=== PATIENT | female | born 2000 ===

== ENCOUNTER 2020-04-07 20:58 | Emergency (ER) | payer OTHER ==
[2020-04-07 21:57] LABS: Urine Blood 2+ (NEG); Urine Glucose NEGATIVE (NEG); Urine Protein NEGATIVE (NEG)
[2020-04-07 22:07] LABS: Urine Bacteria 20-50 /HPF (<20); Urine Culture Reflex Order REFLEXED; Urine Yeast PRESENT (NONE SEEN); Urine Yeast with Hyphae PRESENT
[2020-04-07 22:38] LABS: Basophils % 0.8 % (0-1.3); Hematocrit 41.8 % (36.0-45.0); Lymphocytes % 18.8 % (15.3-44.8); MPV 9.5 fL (7.6-11.3); RBC Red Blood Cell Count 4.65 M/uL (3.86-4.86)
[2020-04-07 22:48] LABS: ALT/SGPT 18 U/L (12-78); AST/SGOT 16 U/L (15-37); Albumin 3.6 g/dL (3.4-5.0); Alkaline Phosphatase 77 U/L (45-117); BUN Blood Urea Nitrogen 11 mg/dL (7-18); Bicarbonate 25 mmol/L (21-32); Bilirubin Direct < 0.1 mg/dL (0-0.2); Bilirubin Total 0.1 mg/dL (0.2-1.0); Glucose Level 112 mg/dL (74-106); Lipase 101 U/L (73-393); Potassium 3.3 mmol/L (3.5-5.1); Protein, Total 7.2 g/dL (6.4-8.2); Sodium Level 140 mmol/L (136-145)
[2020-04-08] MEDS ORDERED: CEFTRIAXONE/SWI 1gm 1 GM/10 ML SYR ONE (00:18)
[2020-04-08] MEDS ORDERED: FLUCONAZOLE 100 MG TAB ONE (00:18)
[2020-04-08 01:31] VITALS: BP 117/65; TEMP 97.3; O2SAT 100
--- NOTE | 2020-04-08 09:20 | RAD REPORT ---
EXAM DESCRIPTION: US - Transvaginal Study Probe - 04/08/2020 8:43 am CLINICAL HISTORY: lower abdomen pain COMPARISON: No comparisons TECHNIQUE: Endovaginal sonography was performed. FINDINGS: Normal size uterus for patient age. No myometrial mass. A thin endometrial stripe is prese nt 2 mm or less. No endometrial abnormality. Both ovaries are identified and normal size. Doppler evaluation shows normal ovarian stroma blood zeferino w pattern. No dominant solid or cystic ovarian or adnexal finding. No blood or fluid in the cul de sac. IMPRESSION: Unremarkable endovaginal ultrasound.
--- NOTE | 2020-04-08 19:31 | EDPHYS ---
Physician Documentation [facility] Name: Pamela Mckeon Age: 19 yrs Sex: Female : 2000 Arrival Date: 04/07/2020 Time: 21:01 Bed 15 Private MD: ED Physician Daniel Jaramillo HPI: 04/07 21:50 This 19 yrs old Female presents to ER via Ambulatory with complaints of Vaginal cp Bleeding. 21:50 The patient presents with vaginal bleeding that is vaginal discharge, that is brown cp discharge. Onset: The symptoms/episode began/occurred this morning. 21:50 Associated signs and symptoms: Pertinent positives: dysuria, lower abdominal pain, cp Pertinent negatives: fever. Severity of symptoms: in the emergency department the symptoms have improved, mildly. The patient is sexually active, reportedly has a single partner, does not use protection during intercourse. 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 - Social history:: Smoking status: Reported history of juuling and/or vaping. ROS: 21:55 Constitutional: Negative for body aches, chills, fever, poor PO intake. cp 21:55 Positive for urinary symptoms, vaginal bleeding, vaginal discharge, Negative for cp flank pain. 21:55 Eyes: Negative for injury, pain, redness, and discharge. 21:55 ENT: Negative for ear pain, sore throat. 21:55 Cardiovascular: Negative for chest pain. 21:55 Respiratory: Negative for cough. 21:55 Abdomen/GI: Positive for abdominal pain, Negative for vomiting, diarrhea, constipation. 21:55 Skin: Negative for rash. 21:55 All other systems are negative. Exam: 22:00 Constitutional: The patient appears in no acute distress, alert, awake, non-toxic, well cp developed, well nourished. 22:00 Head/Face: Normocephalic, atraumatic. cp 22:00 Eyes: Periorbital structures: appear normal, Conjunctiva: normal, no exudate, no injection, Sclera: no appreciated abnormality, Lids and lashes: appear normal, bilaterally. 22:00 ENT: External ear(s): are unremarkable, Nose: is normal, Mouth: Lips: moist, Oral mucosa: moist, Posterior pharynx: Airway: no evidence of obstruction, patent. 22:00 Chest/axilla: Inspection: normal, Palpation: is normal, no crepitus, no tenderness. 22:00 Cardiovascular: Rate: normal, Rhythm: regular. 22:00 Respiratory: the patient does not display signs of respiratory distress, Respirations: normal, no use of accessory muscles, no retractions, labored breathing, is not present. 22:00 Abdomen/GI: Inspection: abdomen appears normal, Bowel sounds: active, all quadrants, Palpation: soft, in all quadrants, mild abdominal tenderness, in the suprapubic area, right lower quadrant and left lower quadrant, rebound tenderness, is not appreciated, voluntary guarding, is not appreciated, involuntary guarding, is not appreciated. 22:00 Back: CVA tenderness, is absent. 23:33 : CVA tenderness, is absent, Pelvic Exam: Speculum exam: scant bleeding, no cp cervicitis, os that is closed, bimanual exam reveals cervical motion tenderness, os that is closed, no uterine tenderness, no adnexal tenderness on right, no adnexal tenderness on left, no adnexal mass on right, no adnexal mass on left, discharge, blood tinged, the nurse was present for the exam, Sexual behavior: the patient is sexually active, and reports a single partner, method of control is control pills. 23:33 Skin: cellulitis, is not appreciated, no rash present. Vital Signs: 21:11 BP 117 / 65; Pulse 95; Resp 18 S; Temp 97.3(TE); Pulse Ox 100% on R/A; Weight 90.72 kg ca1 (R); Height 5 ft. 3 in. (160.02 cm) (R); Pain 10/10; 21:11 Body Mass Index 35.43 (90.72 kg, 160.02 cm) ca1 MDM: 21:47 Patient medically screened. cp 23:55 Data reviewed: vital signs, nurses notes, lab test result(s), radiologic studies, cp ultrasound, and as a result, I will discharge patient. 23:55 Differential diagnosis: appendicitis, brandon infection, ectopic , ovarian cp cyst, pelvic inflammatory disease, urinary tract infection, vaginosis. Counseling: I had a detailed discussion with the patient and/or guardian regarding: the historical points, exam findings, and any diagnostic results supporting the discharge/admit diagnosis, lab results, radiology results, the need for outpatient follow up, an OB/Gyne specialist, to return to the emergency department if symptoms worsen or persist or if there are any questions or concerns that arise at home. Response to treatment: the patient's symptoms have mildly improved after treatment, and as a result, I will discharge patient. ED course: VSS. Will treat for pelvic infection with oral antibiotics and discharge to home for continued monitoring. 04/07 21:43 Order name: Urine Microscopic Only; Complete Time: 23:23 04/07 23:23 Interpretation: Normal except: UWBC 20-50; URBC 5-10; UBACT 20-50; YEAST PRESENT. 04/07 21:50 Order name: Urine Dipstick--Ancillary (enter results); Complete Time: 23:23 nm 04/07 21:50 Order name: Urine --Ancillary (enter results); Complete Time: 23:23 nm 04/07 21:53 Order name: Basic Metabolic Panel; Complete Time: 23:23 04/07 23:23 Interpretation: Normal except: K 3.3; CL 109; GLUC 112; GFR 77. 04/07 21:53 Order name: CBC with Diff; Complete Time: 23:23 04/07 23:23 Interpretation: Normal except: WBC 16.1; NEUT A 11.6. 04/07 21:53 Order name: Hepatic Function; Complete Time: 23:23 04/07 21:43 Order name: Urine Dipstick-Ancillary (obtain specimen); Complete Time: 21:49 04/07 21:52 Order name: US Transvaginal Study (Probe) 04/07 21:53 Order name: Lipase; Complete Time: 23:23 04/07 21:53 Order name: GC (GONORR/CHLAMYDIA) Probe 04/07 21:53 Order name: Wet Prep 04/07 22:09 Order name: Urine Culture EDKY 04/07 21:43 Order name: Urine Test (obtain specimen); Complete Time: 21:49 04/07 21:52 Order name: Pelvic Exam Setup 04/07 21:53 Order name: IV Saline Lock; Complete Time: 23:56 04/07 21:53 Order name: Labs collected and sent; Complete Time: 23:56 Administered Medications: 04/08 00:02 Drug: Rocephin - (cefTRIAXone) 1 grams Route: IVPB; Infused Over: 10 mins; Site: right ls4 antecubital; 00:12 Follow up: Response: No adverse reaction; IV Status: Completed infusion; IV Intake: [id number] 00:02 Drug: DiFLUcan 200 mg Route: PO; ls4 00:20 Follow up: Response: No adverse reaction; Marked relief of symptoms ls4 Disposition: 02:19 Co-signature as Attending Physician, Daniel Jaramillo MD. pkl Disposition: 04/07/20 23:56 Discharged to Home. Impression: Abdominal and pelvic pain. - Condition is Stable. - Discharge Instructions: Abdominal Pain, Adult, Pelvic Pain, Female. - Prescriptions for Doxycycline Hyclate 100 mg Oral Tablet - take 1 tablet by ORAL route every 12 hours; 20 tablet. Metronidazole 500 mg Oral Tablet - take 1 tablet by ORAL route every 8 hours; 30 tablet. Ibuprofen 800 mg Oral Tablet - take 1 tablet by ORAL route every 8 hours As needed take with food; 30 tablet. - Medication Reconciliation Form, Thank You Letter, Antibiotic Education, Prescription Opioid Use form. - Follow up: Private Physician; When: 1 week; Reason: Recheck today's complaints. - Problem is new. - Symptoms have improved. Signatures: Dispatcher [employer] EDKY Daniel Jaramillo MD MD pkl Larry Burroughs PA PA cp Stewart, Lisa RN RN ls4 Helen Arriaga RN RN ca1 Corrections: (The following items were deleted from the chart) 04/07 23:23 23:23 Normal except: WBC 16.1. cp 04/08 00:50 04/07 23:56 04/07/2020 23:56 Discharged to Home. Impression: Abdominal and pelvic pain. ls4 Condition is Stable. Forms are Medication Reconciliation Form, Thank You Letter, Antibiotic Education, Prescription Opioid Use. Follow up: Private Physician; When: 1 week; Reason: Recheck today's complaints. Problem is new. Symptoms have improved. cp
--- NOTE | 2020-04-08 19:31 | ER ---
Nurse's Notes [facility] [place], [place] Name: Pamela Mckeon Age: 19 yrs Sex: Female : 2000 Arrival Date: 04/07/2020 Time: 21:01 Bed 15 Private MD: Diagnosis: Abdominal and pelvic pain Presentation: 04/07 21:11 Chief complaint: Patient states: Vaginal discharge since this morning. Discharged ca1 described as brown in color, sticky and with some clots. Reports vaginal burning, pain and itching. Denies fever. Reports burning with urination, urinary frequency and urgency. Coronavirus screen: Proceed with normal triage. Patient denies a cough. Patient denies shortness of breath or difficulty breathing. Patient denies measured and/or subjective temperature greater than 100.4F prior to today's visit. Patient denies travel on a cruise ship or to a country the [facility] currently lists as an affected area. Patient denies contact with known and/or suspected case of COVID-19. Ebola Screen: Patient negative for fever greater than or equal to 101.5 degrees Fahrenheit, and additional compatible Ebola Virus Disease symptoms Patient denies exposure to infectious person. Patient denies travel to an Ebola-affected area in the 21 days before illness onset. No symptoms or risks identified at this time. Initial Sepsis Screen: Does the patient meet any 2 criteria? No. Patient's initial sepsis screen is negative. Does the patient have a suspected source of infection? No. Patient's initial sepsis screen is negative. Risk Assessment: Do you want to hurt yourself or someone else? Patient reports no desire to harm self or others. Onset of symptoms was April 07, 2020. 21:11 Method Of Arrival: Ambulatory ca1 21:11 Acuity: [place] 3 ca1 Triage Assessment: 21:41 General: Behavior is calm, cooperative. General: Appears in no apparent distress. ls4 comfortable. Neuro: No deficits noted. Cardiovascular: No deficits noted. Respiratory: No deficits noted. : Reports discharge, from vagina that is brown vaginal itching. 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 - Social history:: Smoking status: Reported history of juuling and/or vaping. Screenin:50 Abuse screen: Denies threats or abuse. Denies injuries from another. Nutritional ls4 screening: No deficits noted. Tuberculosis screening: No symptoms or risk factors identified. Fall Risk None identified. Assessment: 21:41 General: Appears in no apparent distress. comfortable. Pain: Denies pain. : Urine is ls4 blood tinged, Reports vaginal bleeding that is brown, light flow. 23:00 Reassessment: Patient appears in no apparent distress at this time. Patient and/or ls4 family updated on plan of care and expected duration. Pain level reassessed. Patient is alert, oriented x 3, equal unlabored respirations, skin warm/dry/pink. Vital Signs: 21:11 BP 117 / 65; Pulse 95; Resp 18 S; Temp 97.3(TE); Pulse Ox 100% on R/A; Weight 90.72 kg ca1 (R); Height 5 ft. 3 in. (160.02 cm) (R); Pain 10/10; 21:11 Body Mass Index 35.43 (90.72 kg, 160.02 cm) ca1 ED Course: 21:01 Patient arrived in ED. bp1 21:14 Triage completed. ca1 21:16 Arm band placed on right wrist. ca1 21:42 Larry Burroughs PA is PHCP. cp 21:42 Daniel Jaramillo MD is Attending Physician. cp 21:42 Inserted saline lock: 20 gauge in right antecubital area, using aseptic technique. ls4 21:49 Mary Jane Ortiz, RN is Primary Nurse. ls4 21:50 Patient has correct armband on for positive identification. Bed in low position. Call ls4 light in reach. Side rails up X 1. Pulse ox on. NIBP on. Warm blanket given. 22:22 Assist provider with pelvic exam: Set up pelvic tray. Performed by Mary Jane Ortiz RN ls4 Specimens sent to lab. Patient tolerated well. 23:31 Ultrasound completed. Patient tolerated well. Notified TOURIST AGENT/PA page. sg3 23:33 US Transvaginal Study (Probe) In Process Unspecified. EDMS 23:55 Urine Culture Sent. ls4 06 00:20 IV discontinued, intact, bleeding controlled, No redness/swelling at site. Pressure ls4 dressing applied. Administered Medications: 00:02 Drug: Rocephin - (cefTRIAXone) 1 grams Route: IVPB; Infused Over: 10 mins; Site: right ls4 antecubital; 00:12 Follow up: Response: No adverse reaction; IV Status: Completed infusion; IV Intake: [id number] 00:02 Drug: DiFLUcan 200 mg Route: PO; ls4 00:20 Follow up: Response: No adverse reaction; Marked relief of symptoms ls4 Intake: 00:12 IV: 10ml; Total: 10ml. ls4 Outcome: 04/07 23:56 Discharge ordered by . rashmi 04/08 00:20 Patient left the ED. ls4 00:20 Discharged to home ambulatory. ls4 00:20 Condition: good 00:20 Discharge instructions given to patient, Instructed on discharge instructions, Demonstrated understanding of instructions, follow-up care, medications. Signatures: Dispatcher [employer] EDMS Larry Burroughs PA PA cp Godinez, Sarah sg3 Mary Jane Ortiz, RN RN ls4 Helen Arriaga RN RN ca1 Kary Cesar [facility] Corrections: (The following items were deleted from the chart) 04/07 23:41 21:42 No provider procedures requiring assistance completed. ls4 ls4 04/08 01:09 00:50 Patient left the ED. ls4 ls4
[2020-04-10 18:56] LABS: C.trachomatis RNA,TMA Not Detected (Not Detected)
== END 2020-04-08 00:50 | disposition home or self-care (01) ==
LOC: ER 20:58
DX: R10.2 Pelvic and perineal pain (principal); E07.9 Disorder of thyroid, unspecified; F34.1 Dysthymic disorder
CPT/HCPCS: 87088; 85025; 87086; 80048; 36415; 81025; 80076; 87210; 83690; 87590; 87490; 76830; 96374; 99284; J0696; 81003; 81015

== ENCOUNTER 2020-04-18 17:39 | Emergency (ER) | payer OTHER ==
--- NOTE | 2020-04-18 18:31 | RAD REPORT ---
EXAM DESCRIPTION: RAD - Knee Right 3 View - 04/18/2020 6:24 pm CLINICAL HISTORY: PAIN COMPARISON: No comparisons FINDINGS: Small joint effusion is present. No fracture or dislocation is seen.
--- NOTE | 2020-04-18 18:42 | EDPHYS ---
Physician Documentation [facility] Name: Pamela Mckeon Age: 19 yrs Sex: Female : 2000 Arrival Date: 04/18/2020 Time: 17:39 Bed 20 Private MD: ED Physician Nirav Lou HPI: 04/18 18:29 This 19 yrs old Female presents to ER via Ambulatory with complaints of Knee Pain. jmm 18:29 The patient presents with an injury, pain. Onset: The symptoms/episode began/occurred jm acutely, just prior to arrival. Modifying factors: The symptoms are alleviated by nothing. the symptoms are aggravated by movement, weight bearing, bending knee. Patient states she felt a pop as she twisted her knee earlier today. Pain on weight bearing. Denies other injury. . Historical: - Allergies: 17:49 No Known Allergies; ll1 - PMHx: 17:49 Depression; Thyroid problem; Anxiety; ll1 - PSHx: 17:49 None; ll1 - Immunization history:: Adult Immunizations up to date. - Social history:: Smoking status: Patient denies any tobacco usage or history of. Patient/guardian denies using alcohol, street drugs, tobacco products. ROS: 18:29 Constitutional: Negative for fever, chills, and weight loss, Cardiovascular: Negative jm for chest pain, palpitations, and edema, Respiratory: Negative for shortness of breath, cough, wheezing, and pleuritic chest pain. 18:29 MS/extremity: Positive for injury or acute deformity, pain. 18:29 All other systems are negative. Exam: 18:29 Constitutional: This is a well developed, well nourished patient who is awake, alert, jmm and in no acute distress. Head/Face: atraumatic. Eyes: EOMI, no conjunctival erythema appreciated ENT: Moist Mucus Membranes Neck: Trachea midline, Supple Chest/axilla: Normal chest wall appearance and motion. Cardiovascular: Regular rate and rhythm. No edema appreciated Respiratory: Normal respirations, no respiratory distress appreciated Abdomen/GI: Non distended, soft Back: Normal ROM Skin: General appearance color normal 18:29 Musculoskeletal/extremity: left medial ant knee pain on palpation, painful flexion, compartments are soft, full dorsalis pulse, NVI. 18:29 Skin: Appearance: Color: normal in color. 18:29 Neuro: Orientation: is normal, Mentation: is normal, Memory: is normal. 18:29 Psych: Behavior/mood is pleasant, cooperative. Vital Signs: 17:47 BP 132 / 73; Pulse 94; Resp 18; Temp 97.7; Pulse Ox 99% ; Pain 7/10; ll1 MDM: 17:58 Patient medically screened. [facility] 18:39 Data reviewed: vital signs, nurses notes. Counseling: I had a detailed discussion with [facility] the patient and/or guardian regarding: the historical points, exam findings, and any diagnostic results supporting the discharge/admit diagnosis, radiology results, the need for outpatient follow up, to return to the emergency department if symptoms worsen or persist or if there are any questions or concerns that arise at home. ED course: Patient is alert and non toxic in appearance in the ED. Patient is advised to follow up with ortho for further evaluation. Patient understood and agrees with the plan of care. . 04/18 18:08 Order name: Knee Right 3 View XRAY; Complete Time: 18:38 [facility] 04/18 18:38 Order name: Mendoza wrap-joint; Complete Time: 19:04 [facility] 04/18 18:38 Order name: Crutches; Complete Time: 19:04 [facility] Administered Medications: No medications were administered Disposition: 04/19 17:32 Co-signature as Attending Physician, Nirav Lou MD I agree with the assessment and kdr plan of care. Disposition: 04/18/20 18:40 Discharged to Home. Impression: Internal derangement of knee. - Condition is Stable. - Discharge Instructions: Knee Pain. - Prescriptions for orphenadrine citrate 100 mg Oral Tablet Sustained Release - take 1 tablet by ORAL route 2 times per day As needed; 20 tablet. - Medication Reconciliation Form, Thank You Letter, Antibiotic Education, Prescription Opioid Use, Work release form form. - Follow up: Reji Milian MD; When: 2 - 3 days; Reason: Recheck today's complaints, Continuance of care, Re-evaluation by your physician. Signatures: Dispatcher [employer] EDMS Nirav Lou MD MD kdr Mickail, Joel, PA PA [facility] Cori Luna RN RN Iza Bolaños RN RN ll1 Corrections: (The following items were deleted from the chart) 04/18 19:06 18:40 04/18/2020 18:40 Discharged to Home. Impression: Internal derangement of knee. ah Condition is Stable. Forms are Medication Reconciliation Form, Thank You Letter, Antibiotic Education, Prescription Opioid Use. Follow up: Reji Milian; When: 2 - 3 days; Reason: Recheck today's complaints, Continuance of care, Re-evaluation by your physician. jessica
--- NOTE | 2020-04-18 18:42 | ER ---
Nurse's Notes [facility] Name: Pamela Mckeon Age: 19 yrs Sex: Female : 2000 Arrival Date: 04/18/2020 Time: 17:39 Bed 20 Private MD: Diagnosis: Internal derangement of knee Presentation: 04/18 17:47 Chief complaint: Patient states: Twisted and had sudden pain to right knee today. Pain ll1 with trying to walk now. Coronavirus screen: Proceed with normal triage. Patient denies a cough. Patient denies shortness of breath or difficulty breathing. Patient denies measured and/or subjective temperature greater than 100.4F prior to today's visit. Patient denies travel on a cruise ship or to a country the [facility] currently lists as an affected area. Patient denies contact with known and/or suspected case of COVID-19. Ebola Screen: Patient denies travel to an Ebola-affected area in the 21 days before illness onset. Initial Sepsis Screen: Does the patient meet any 2 criteria? HR > 90 bpm. No. Patient's initial sepsis screen is negative. Does the patient have a suspected source of infection? No. Patient's initial sepsis screen is negative. Risk Assessment: Do you want to hurt yourself or someone else? Patient reports no desire to harm self or others. Onset of symptoms was April 18, 2020. 17:47 Method Of Arrival: Ambulatory ll1 17:47 Acuity: [place] 4 ll1 Historical: - Allergies: 17:49 No Known Allergies; ll1 - PMHx: 17:49 Depression; Thyroid problem; Anxiety; ll1 - PSHx: 17:49 None; ll1 - Immunization history:: Adult Immunizations up to date. - Social history:: Smoking status: Patient denies any tobacco usage or history of. Patient/guardian denies using alcohol, street drugs, tobacco products. Screenin:07 Abuse screen: Denies threats or abuse. Nutritional screening: No deficits noted. Tuberculosis screening: No symptoms or risk factors identified. Fall Risk None identified. Assessment: 18:06 General: Appears in no apparent distress. Behavior is calm, cooperative. Pain: Complains of pain in right knee. Neuro: Level of Consciousness is awake, alert, Oriented to person, place, time, situation. Cardiovascular: Capillary refill < 3 seconds Patient's skin is warm and dry. Respiratory: Airway is patent Respiratory effort is even, unlabored, Respiratory pattern is regular, symmetrical. GI:. Derm: Skin is intact, is healthy with good turgor. Musculoskeletal: Circulation, motion, and sensation intact. Capillary refill < 3 seconds, Range of motion: limited in right knee Reports pain in right knee since today. Vital Signs: 17:47 BP 132 / 73; Pulse 94; Resp 18; Temp 97.7; Pulse Ox 99% ; Pain 7/10; ll1 ED Course: 17:39 Patient arrived in ED. am2 17:45 Julius Leon PA is PHCP. [facility] 17:45 Nirav Lou MD is Attending Physician. [facility] 17:48 Triage completed. [facility] 17:49 Arm band placed on Patient placed in an exam room, on a stretcher. [facility] 18:06 Cori Luna, RN is Primary Nurse. 18:07 Patient has correct armband on for positive identification. Bed in low position. Call light in reach. Side rails up X 1. 18:24 Knee Right 3 View XRAY In Process Unspecified. EDCT 18:40 Reji Milian MD is Referral Physician. [facility] 19:05 Patient did not have IV access during this emergency room visit. Mendoza wrap to right knee. 19:06 No provider procedures requiring assistance completed. Administered Medications: No medications were administered Outcome: 18:40 Discharge ordered by . [facility] 19:05 Discharged to home with crutches. 19:05 Condition: good 19:05 Discharge instructions given to patient, Instructed on discharge instructions, follow up and referral plans. medication usage, crutch walking, Demonstrated understanding of instructions, follow-up care, medications, crutch walking, Prescriptions given X 1. 19:06 Patient left the ED. Signatures: Dispatcher [employer] EDCT Julius Leon PA PA jmm Moreno, Amanda am2 Cori Luna, RN RN Iza Bolaños RN RN 1
[2020-04-18 19:11] VITALS: BP 132/73; TEMP 97.7; O2SAT 99
== END 2020-04-18 19:06 | disposition home or self-care (01) ==
LOC: ER 17:39
DX: M23.92 Unspecified internal derangement of left knee (principal); X50.1XXA Overexertion from prolonged static or awkward postures, initial encounter; Y93.9 Activity, unspecified; Y92.009 Unspecified place in unspecified non-institutional (private) residence as the place of occurrence of the external cause
CPT/HCPCS: 99283

== ENCOUNTER 2021-03-08 12:08 | Emergency (ER) | payer OTHER ==
--- OUTSIDE RECORDS SUMMARY | 2021-03-08 12:10 | XMS REPORT | Continuity of Care Document ---
:2000 Author Organization [facility] t Address [address] [place] [address] Care Team Providers Name Role Phone Pob, Lab Main Attending Clinician Unavailable Doctor Unassigned, Name Attending Clinician Unavailable Problems This patient has no known problems. Allergies, Adverse Reactions, Alerts This patient has no known allergies or adverse reactions. Medications This patient has no known medications. Procedures This patient has no known procedures. 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
--- NOTE | 2021-03-08 13:47 | RAD REPORT ---
EXAM DESCRIPTION: CT - Head Brain Wo Cont - 03/08/2021 1:43 pm CLINICAL HISTORY: HEADACHE COMPARISON: No comparisons TECHNIQUE: Axial 5 mm thick images of the head were obtained without IV contrast. All CT scans are performed using dose optimization technique as appropriate and may include automated exposure control or mA/KV adjustment according to patient size. FINDINGS: No intracranial hemorrhage, mass, edema or shift of mid-line structures. No acute infarcti on changes seen. No abnormal extra-axial fluid collections. Ventricles are normal. Mastoid air cells and visualized portions of the paranasal sinuses are clear. No acute bony findings. IMPRESSION: Negative non-contrast CT head examination.
[2021-03-08 14:26] LABS: Urine Blood Trace-intact (Negative); Urine Glucose Negative (Negative); Urine Protein Negative (Negative); Urine Specific Gravity >=1.030 (1.005-1.030)
[2021-03-08] MEDS ORDERED: NA CHLORIDE 0.9% 1,000 ML ONE (14:28)
[2021-03-08] MEDS ORDERED: METOCLOPRAMIDE 10 MG/2mL INJ ONE (14:29)
[2021-03-08] MEDS ORDERED: KETOROLAC 30 MG/ML INJ ONE (14:29)
[2021-03-08] MEDS ORDERED: DIPHENHYDRAMINE 50 MG/ML VIAL ONE (14:29)
--- NOTE | 2021-03-08 15:30 | EDPHYS ---
Physician Documentation [facility] Name: Pamela Mckeon Age: 20 yrs Sex: Female : 2000 Arrival Date: 03/08/2021 Time: 12:09 Bed 14 Private MD: ED Physician Oz Friedman HPI: 03/08 13:52 This 20 yrs old Female presents to ER via Ambulatory with complaints of Eye Problem, pm1 Blurred Vision, Headache. 13:52 The patient complains of pain to the forehead, right eye, left eye, left occipital area pm1 and right occipital area. The patient describes the headache as aching, constant. Onset: The symptoms/episode began/occurred 2 week(s) ago. Associated signs and symptoms: Pertinent negatives: fever, nausea, neck stiffness, paresthesias, vomiting, weakness. Severity of symptoms: in the emergency department the pain is unchanged. Headache History: Denies prior headaches. The symptoms are alleviated by nothing. the symptoms are aggravated by lights, noise. The patient has not experienced similar symptoms in the past. The patient has not recently seen a physician. 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 - Social history:: Smoking status: Patient denies any tobacco usage or history of. ROS: 13:52 Constitutional: Negative for fever, chills, and weight loss, Cardiovascular: Negative pm1 for chest pain, palpitations, and edema, Respiratory: Negative for shortness of breath, cough, wheezing, and pleuritic chest pain. 13:52 Abdomen/GI: Negative for abdominal pain, nausea, vomiting, diarrhea, and constipation, Back: Negative for injury and pain, MS/Extremity: Negative for injury and deformity, Skin: Negative for injury, rash, and discoloration. 13:52 Eyes: Positive for blurry vision, Negative for discharge, redness. 13:52 Neuro: Positive for headache, Negative for numbness, tingling, weakness. Exam: 13:52 Constitutional: This is a well developed, well nourished patient who is awake, alert, pm1 and in no acute distress. Head/Face: Normocephalic, atraumatic. 13:52 Back: No spinal tenderness. No costovertebral tenderness. Full range of motion. Skin: Warm, dry with normal turgor. Normal color with no rashes, no lesions, and no evidence of cellulitis. MS/ Extremity: Pulses equal, no cyanosis. Neurovascular intact. Full, normal range of motion. 13:52 Eyes: Exam is negative for acute changes, Periorbital structures: appear normal, Pupils: no acute changes, normal size, shape is regular, normal reaction to light. 13:52 Cardiovascular: Exam negative for acute changes, Rate: normal, Rhythm: regular, Pulses: no pulse deficits are appreciated. 13:52 Respiratory: Exam negative for acute changes, respiratory distress, shortness of breath. 13:52 Abdomen/GI: Exam negative for acute changes, Inspection: abdomen appears normal, Palpation: abdomen is soft and non-tender, in all quadrants. 13:52 Neuro: Exam negative for acute changes, Orientation: is normal, Mentation: is normal, Motor: is normal, moves all fours, strength is normal, strength is 5/5 in all extremities, Sensation: is normal, no obvious gross deficits, Gait: is steady, at a normal pace, without difficulty. Vital Signs: 12:36 BP 131 / 68; Pulse 98; Resp 14; Temp 97.9(TE); Pulse Ox 99% on R/A; Weight 93.44 kg; ss Height 5 ft. 2 in. (157.48 cm); Pain 7/10; 15:07 BP 97 / 50; Pulse 72; Resp 16; Pulse Ox 100% on R/A; zb 12:36 Body Mass Index 37.68 (93.44 kg, 157.48 cm) ss MDM: 13:27 Patient medically screened. pm1 13:56 Data reviewed: vital signs. Data interpreted: Pulse oximetry: on room air is 99 %. pm1 Interpretation: normal. 15:27 Counseling: I had a detailed discussion with the patient and/or guardian regarding: the pm1 historical points, exam findings, and any diagnostic results supporting the discharge/admit diagnosis, lab results, radiology results, the need for outpatient follow up, for definitive care, a neurologist, to return to the emergency department if symptoms worsen or persist or if there are any questions or concerns that arise at home. 15:27 ED course: Pain 10 from -06/17 with medications given. Patient states she feels pm1 better and is ready to go home. 03/08 14:25 Order name: Urine Dipstick-Ancillary; Complete Time: 14:35 EDMS 03/08 14:28 Order name: Urine --Ancillary (enter results) eb 03/08 13:29 Order name: CT Head Brain wo Cont; Complete Time: 13:52 pm1 03/08 14:28 Order name: Urine --Ancillary; Complete Time: 14:35 EDMS 03/08 13:29 Order name: IV Saline Lock; Complete Time: 14:04 pm1 03/08 13:29 Order name: Urine Dipstick-Ancillary (obtain specimen); Complete Time: 14:31 pm1 03/08 13:29 Order name: Urine Test (obtain specimen); Complete Time: 14:30 pm1 Administered Medications: 14:18 Drug: Reglan (metoCLOPramide) 10 mg Route: IVP; Site: right antecubital; zb 15:40 Follow up: Response: No adverse reaction; Marked relief of symptoms zb 14:18 Drug: TORadol (ketorolac) 30 mg Route: IVP; Site: right antecubital; zb 15:40 Follow up: Response: No adverse reaction; Pain is decreased zb 14:18 Drug: NS 0.9% 1000 ml Route: IV; Rate: 1000 ml; Site: right antecubital; zb 16:15 Follow up: Response: No adverse reaction; Pain is unchanged, physician notified; IV zb Status: Completed infusion; IV Intake: 1000ml 14:19 Drug: Benadryl (diphenhydrAMINE) 25 mg Route: IVP; Site: right antecubital; zb 15:40 Follow up: Response: No adverse reaction zb Disposition: 16:25 Co-signature as Attending Physician, Oz Friedman MD. rn Disposition: 03/08/21 15:29 Discharged to Home. Impression: Headache. - Condition is Stable. - Discharge Instructions: General Headache Without Cause, Tension Headache, Adult. - Prescriptions for Fiorinal 50- 325-40 mg Oral Capsule - take 1 capsule by ORAL route every 4 hours As needed - not to exceed 6 capsules per day; 20 capsule. - Medication Reconciliation Form, Thank You Letter, Antibiotic Education, Prescription Opioid Use form. - Follow up: Emergency Department; When: As needed; Reason: Worsening of condition. Follow up: Private Physician; When: 2 - 3 days; Reason: Recheck today's complaints, Continuance of care, Re-evaluation by your physician. - Problem is new. - Symptoms have improved. Signatures: Dispatcher [employer] EDMS Oz Friedman MD MD rn Smirch, Shelby, RN RN ss Marinas, Patrick EARTH MOVING MACHINE OPERATOR EARTH MOVING MACHINE OPERATOR pm1 Sonia Andujar RN RN zb Corrections: (The following items were deleted from the chart) 16:15 15:29 03/08/2021 15:29 Discharged to Home. Impression: Headache. Condition is Stable. zb Discharge Instructions: General Headache Without Cause, Tension Headache, Adult. Prescriptions for Fiorinal 50-325-40 mg Oral Capsule - take 1 capsule by ORAL route every 4 hours As needed - not to exceed 6 capsules per day; 20 capsule. and Forms are Medication Reconciliation Form, Thank You Letter, Antibiotic Education, Prescription Opioid Use. Follow up: Emergency Department; When: As needed; Reason: Worsening of condition. Follow up: Private Physician; When: 2 - 3 days; Reason: Recheck today's complaints, Continuance of care, Re-evaluation by your physician. Problem is new. Symptoms have improved. pm1
--- NOTE | 2021-03-08 15:30 | ER ---
Nurse's Notes [facility] Name: Pamela Mckeon Age: 20 yrs Sex: Female : 2000 Arrival Date: 03/08/2021 Time: 12:09 Bed 14 Private MD: Diagnosis: Headache Presentation: 03/08 12:36 Chief complaint: Patient states: continuous headache to denominational areas and back of head. ss Pt also reports that she feels like her pupils seems bigger than usual and won't get smaller. Pt reports that her pupils seem larger at night time. Coronavirus screen: Client denies travel out of the [place] in the last 14 days. Ebola Screen: Patient denies exposure to infectious person. Patient denies travel to an Ebola-affected area in the 21 days before illness onset. Initial Sepsis Screen: Does the patient meet any 2 criteria? No. Patient's initial sepsis screen is negative. Does the patient have a suspected source of infection? No. Patient's initial sepsis screen is negative. Risk Assessment: Do you want to hurt yourself or someone else? Patient reports no desire to harm self or others. Onset of symptoms was February 22, 2021. 12:36 Method Of Arrival: Ambulatory ss 12:36 Acuity: [place] 3 Triage Assessment: 14:30 Headache History: Denies prior headaches. zb 16:14 General: Appears in no apparent distress. Pain: Pain began suddenly, today Also zb complains of no other associated symptoms. 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 - Social history:: Smoking status: Patient denies any tobacco usage or history of. Screenin:30 Abuse screen: Denies threats or abuse. Denies injuries from another. Nutritional zb screening: No deficits noted. Tuberculosis screening: No symptoms or risk factors identified. Fall Risk None identified. Assessment: 13:30 General: Appears in no apparent distress. uncomfortable, Behavior is calm, cooperative, zb appropriate for age, Denies fever, feeling ill, fatigue, chills. Pain: Complains of pain in right denominational and right base of the skull Pain currently is 7 out of 10 on a pain scale. Quality of pain is described as aching, pressure. Neuro: Level of Consciousness is awake, alert, obeys commands, Oriented to person, place, time, situation. Neuro: Reports headache photophobia. Cardiovascular: Patient's skin is warm and dry. Respiratory: Airway is patent Respiratory effort is even, unlabored, Respiratory pattern is regular, symmetrical. GI: Abdomen is flat. Derm: Skin is intact, Skin temperature is warm. Musculoskeletal: Circulation, motion, and sensation intact. Range of motion: intact in all extremities. 14:30 Reassessment: Patient appears in no apparent distress at this time. Patient and/or zb family updated on plan of care and expected duration. Pain level reassessed. Patient is alert, oriented x 3, equal unlabored respirations, skin warm/dry/pink. IV fluids infusing. 15:07 Reassessment: Patient appears in no apparent distress at this time. Patient and/or zb family updated on plan of care and expected duration. Pain level reassessed. Patient is alert, oriented x 3, equal unlabored respirations, skin warm/dry/pink. IV fluids infusing. Patient states feeling better. Patient states symptoms have improved. 15:25 Reassessment: ECP at bedside discussing care. IV fluids infusing. zb 16:13 Reassessment: Patient appears in no apparent distress at this time. Patient and/or zb family updated on plan of care and expected duration. Pain level reassessed. Patient is alert, oriented x 3, equal unlabored respirations, skin warm/dry/pink. IV fluids completed. patient d/c. patient took iv out. iv appears to be intact. Patient denies pain at this time. Patient states feeling better. Patient states symptoms have improved. Vital Signs: 12:36 BP 131 / 68; Pulse 98; Resp 14; Temp 97.9(TE); Pulse Ox 99% on R/A; Weight 93.44 kg; ss Height 5 ft. 2 in. (157.48 cm); Pain 7/10; 15:07 BP 97 / 50; Pulse 72; Resp 16; Pulse Ox 100% on R/A; zb 12:36 Body Mass Index 37.68 (93.44 kg, 157.48 cm) ss ED Course: 12:09 Patient arrived in ED. as 12:38 Triage completed. ss 12:39 Arm band placed on right wrist. ss 13:20 Evaristo Lorenzo, JAMIE is PHCP. pm1 13:20 Oz Friedman MD is Attending Physician. pm1 13:27 Sonia Andujar RN is Primary Nurse. zb 13:42 CT Head Brain wo Cont In Process Unspecified. EDMS 13:49 Urine collected: clean catch specimen, clear. zb 14:30 Patient has correct armband on for positive identification. Call light in reach. Side zb rails up X 1. Pulse ox on. NIBP on. Door closed. Noise minimized. 14:30 Urine --Ancillary (enter results) Sent. zb 16:13 No provider procedures requiring assistance completed. IV discontinued, intact, zb bleeding controlled, No redness/swelling at site. Pressure dressing applied. Administered Medications: 14:18 Drug: Reglan (metoCLOPramide) 10 mg Route: IVP; Site: right antecubital; zb 15:40 Follow up: Response: No adverse reaction; Marked relief of symptoms zb 14:18 Drug: TORadol (ketorolac) 30 mg Route: IVP; Site: right antecubital; zb 15:40 Follow up: Response: No adverse reaction; Pain is decreased zb 14:18 Drug: NS 0.9% 1000 ml Route: IV; Rate: 1000 ml; Site: right antecubital; zb 16:15 Follow up: Response: No adverse reaction; Pain is unchanged, physician notified; IV zb Status: Completed infusion; IV Intake: 1000ml 14:19 Drug: Benadryl (diphenhydrAMINE) 25 mg Route: IVP; Site: right antecubital; zb 15:40 Follow up: Response: No adverse reaction zb Intake: 16:15 IV: 1000ml; Total: 1000ml. zb Outcome: 15:29 Discharge ordered by . pm1 16:14 Discharged to home ambulatory. zb 16:14 Condition: stable 16:14 Discharge instructions given to patient, Instructed on discharge instructions, follow up and referral plans. medication usage, Demonstrated understanding of instructions, follow-up care, medications, Prescriptions given X 1. 16:15 Patient left the ED. zb Signatures: Dispatcher [employer] EDMS Latasha Lockett Shelby, RN RN ss Evaristo Lorenzo NP ACTIVITY THERAPIST pm1 Sonia Andujar RN RN zb Corrections: (The following items were deleted from the chart) 16:14 16:13 Reassessment: IV fluids completed. patient d/c. patient took iv out. iv appears zb to be intact. zb
[2021-03-08 16:33] VITALS: TEMP 97.9
[2021-03-08 16:35] VITALS: BP 97/50; O2SAT 100
== END 2021-03-08 16:15 | disposition home or self-care (01) ==
LOC: ER 12:08
DX: R51.9 Headache, unspecified (principal); E07.9 Disorder of thyroid, unspecified; F41.8 Other specified anxiety disorders
CPT/HCPCS: 96361; 81025; 81003; 70450; 96375; 96374; 99284; J2765; J1200; J7030

== ENCOUNTER 2021-03-27 21:20 | Emergency (ER) | payer OTHER ==
--- OUTSIDE RECORDS SUMMARY | 2021-03-27 21:23 | XMS REPORT | Continuity of Care Document ---
:2000 Author Organization [facility] t Address 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
[2021-03-27 23:24] LABS: Urine Blood Negative (Negative); Urine Glucose Negative (Negative); Urine Protein Negative (Negative); Urine pH 6.5 (5.0-7.0)
--- NOTE | 2021-03-27 23:25 | EDPHYS ---
Physician Documentation [facility] Name: Pamela Mckeon Age: 20 yrs Sex: Female : 2000 Arrival Date: 03/27/2021 Time: 21:25 Bed 4 Private MD: GAUTAM Physician Larry Cordova HPI: 03/27 23:16 This 20 yrs old Female presents to ER via Ambulatory with complaints of Chest marino Pain. 23:16 The patient or guardian reports chest pain that is located primarily in the anterior marino chest wall, bilaterally. The pain does not radiate. Associated signs and symptoms: The patient has no apparent associated signs or symptoms. The chest pain is described as aching. Duration: The patient or guardian reports multiple episodes, that wax and wane. Modifying factors: The symptoms are alleviated by remaining still, the symptoms are aggravated by movement, palpation of area. Severity of pain: At its worst the pain was mild moderate in the emergency department the pain is unchanged. The patient has not experienced similar symptoms in the past. 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 - Social history:: Smoking status: Patient/guardian denies using tobacco, Stopped _ months ago 5. - Family history:: not pertinent. ROS: 23:16 Constitutional: Negative for fever, chills, and weight loss, Eyes: Negative for injury, marino pain, redness, and discharge, ENT: Negative for injury, pain, and discharge, Neck: Negative for injury, pain, and swelling, Cardiovascular: Negative for chest pain, palpitations, and edema, Respiratory: Negative for shortness of breath, cough, wheezing, and pleuritic chest pain, Abdomen/GI: Negative for abdominal pain, nausea, vomiting, diarrhea, and constipation, Back: Negative for injury and pain, MS/Extremity: Negative for injury and deformity, Skin: Negative for injury, rash, and discoloration, Neuro: Negative for headache, weakness, numbness, tingling, and seizure, Psych: Negative for depression, anxiety, suicide ideation, homicidal ideation, and hallucinations, Allergy/Immunology: Negative for hives, rash, and allergies, Endocrine: Negative for neck swelling, polydipsia, polyuria, polyphagia, and marked weight changes, Hematologic/Lymphatic: Negative for swollen nodes, abnormal bleeding, and unusual bruising. Exam: 23:16 Constitutional: This is a well developed, well nourished patient who is awake, alert, marino and in no acute distress. Head/Face: Normocephalic, atraumatic. Eyes: Pupils equal round and reactive to light, extra-ocular motions intact. Lids and lashes normal. Conjunctiva and sclera are non-icteric and not injected. Cornea within normal limits. Periorbital areas with no swelling, redness, or edema. ENT: Nares patent. No nasal discharge, no septal abnormalities noted. Tympanic membranes are normal and external auditory canals are clear. Oropharynx with no redness, swelling, or masses, exudates, or evidence of obstruction, uvula midline. Mucous membranes moist. Neck: Trachea midline, no thyromegaly or masses palpated, and no cervical lymphadenopathy. Supple, full range of motion without nuchal rigidity, or vertebral point tenderness. No Meningismus. Chest/axilla: Normal chest wall appearance and motion. Nontender with no deformity. No lesions are appreciated. Cardiovascular: Regular rate and rhythm with a normal S1 and S2. No gallops, murmurs, or rubs. Normal PMI, no JVD. No pulse deficits. Respiratory: Lungs have equal breath sounds bilaterally, clear to auscultation and percussion. No rales, rhonchi or wheezes noted. No increased work of breathing, no retractions or nasal flaring. Abdomen/GI: Soft, non-tender, with normal bowel sounds. No distension or tympany. No guarding or rebound. No evidence of tenderness throughout. Back: No spinal tenderness. No costovertebral tenderness. Full range of motion. Skin: Warm, dry with normal turgor. Normal color with no rashes, no lesions, and no evidence of cellulitis. MS/ Extremity: Pulses equal, no cyanosis. Neurovascular intact. Full, normal range of motion. Neuro: Awake and alert, GCS 15, oriented to person, place, time, and situation. Cranial nerves II-XII grossly intact. Motor strength 5/5 in all extremities. Sensory grossly intact. Cerebellar exam normal. Normal gait. Psych: Awake, alert, with orientation to person, place and time. Behavior, mood, and affect are within normal limits. Vital Signs: 21:45 BP 128 / 70; Pulse 74; Resp 18 S; Temp 98.6(O); Pulse Ox 100% on R/A; Weight 90.72 kg ca1 (R); Height 5 ft. 2 in. (157.48 cm) (R); Pain 6/10; 23:40 BP 108 / 62; Pulse 70; Resp 16; Pulse Ox 98% ; rr5 21:45 Body Mass Index 36.58 (90.72 kg, 157.48 cm) ca1 MDM: 22:39 Patient medically screened. marino 23:21 Differential diagnosis: abnormal EKG, anxiety, chest wall pain, costochondritis, marino esophagitis, stable angina, unstable angina. HEART Score: History: Slightly Suspicious (0), ECG: Normal (0), Age: < or = 45 years (0), Risk Factors: No Risk Factors Known (0), Total Score = 0. The patient's deep vein thrombosis risk score was calculated as follows: Total Score: 0. This patient was found to be at low risk for a deep vein thrombosis by using the Well's assessment criteria. The patient's pulmonary embolism risk score was calculated as follows: Total Score: 0-2 points. This patient was found to be at low risk for a pulmonary embolism by using the Well's assessment criteria. CLAUDIA Risk Score: TOTAL SCORE = 0. Data reviewed: vital signs, nurses notes, lab test result(s), EKG, radiologic studies, plain films. Data interpreted: telemetry monitor: rate is 74 beats/min, rhythm is regular, Pulse oximetry: on room air is 100 %. Test interpretation: by ED physician or midlevel provider: ECG, plain radiologic studies. Counseling: I had a detailed discussion with the patient and/or guardian regarding: the historical points, exam findings, and any diagnostic results supporting the discharge/admit diagnosis, lab results, radiology results, the need for outpatient follow up, for definitive care, a wort extractor, a family practitioner. 03/27 23:24 Order name: Urine Dipstick-Ancillary [facility] 03/27 23:24 Order name: Urine --Ancillary (enter results) tt3 03/27 22:43 Order name: Chest Single View XRAY [facility] 03/27 23:24 Order name: Urine --Ancillary [facility] 03/27 22:00 Order name: EKG; Complete Time: 22:07 [facility] 03/27 22:00 Order name: EKG - Nurse/Tech; Complete Time: 22:00 [facility] 03/27 22:43 Order name: Urine Dipstick-Ancillary (obtain specimen); Complete Time: 23:23 [facility] 03/27 22:43 Order name: Urine Test (obtain specimen); Complete Time: 23:23 [facility] Administered Medications: 23:39 Drug: Aspirin 81 mg Route: PO; ak2 23:41 Follow up: Response: Medication administered at discharge. rr5 23:39 Drug: Motrin (ibuprofen) 600 mg Route: PO; ak2 23:41 Follow up: Response: Medication administered at discharge. rr5 Disposition: 03/27/21 23:24 Discharged to Home. Impression: Other chest pain - chest wall non cardiac. - Condition is Stable. - Discharge Instructions: Nonspecific Chest Pain, Chest Wall Pain, Nonspecific Chest Pain, Oxle-hr-Ebsg, Aspirin and Your Heart. - Prescriptions for Ibuprofen 600 mg Oral Tablet - take 1 tablet by ORAL route every 6 hours As needed take with food; 20 tablet. - Medication Reconciliation Form, Thank You Letter, Antibiotic Education, Prescription Opioid Use form. - Follow up: Private Physician; When: 2 - 3 days; Reason: Recheck today's complaints, Continuance of care, Re-evaluation by your physician. - Problem is new. - Symptoms have improved. Signatures: Dispatcher [employer] EDCO Larry Cordova MD MD cha Roque, Raymond RN RN rr5 Helen Arriaga RN RN ca1 Bienvenido Cox ak2 Corrections: (The following items were deleted from the chart) 23:41 23:24 03/27/2021 23:24 Discharged to Home. Impression: Other chest pain - chest wall rr5 non cardiac. Condition is Stable. Forms are Medication Reconciliation Form, Thank You Letter, Antibiotic Education, Prescription Opioid Use. Follow up: Private Physician; When: 2 - 3 days; Reason: Recheck today's complaints, Continuance of care, Re-evaluation by your physician. Problem is new. Symptoms have improved. marino
--- NOTE | 2021-03-27 23:25 | ER ---
Nurse's Notes [facility] Name: Pamela Mckeon Age: 20 yrs Sex: Female : 2000 Arrival Date: 03/27/2021 Time: 21:25 Bed 4 Private MD: Diagnosis: Other chest pain-chest wall non cardiac Presentation: 03/27 21:45 Chief complaint: Patient states: Chest pain x 3 days. Denies cough. Denies injury to ca1 chest. Denies HX heart conditions. Coronavirus screen: Client denies travel out of the [place] in the last 14 days. At this time, the client does not indicate any symptoms associated with coronavirus-19. Ebola Screen: Patient negative for fever greater than or equal to 101.5 degrees Fahrenheit, and additional compatible Ebola Virus Disease symptoms Patient denies exposure to infectious person. Patient denies travel to an Ebola-affected area in the 21 days before illness onset. No symptoms or risks identified at this time. Initial Sepsis Screen: Does the patient meet any 2 criteria? No. Patient's initial sepsis screen is negative. Does the patient have a suspected source of infection? No. Patient's initial sepsis screen is negative. Risk Assessment: Do you want to hurt yourself or someone else? Patient reports no desire to harm self or others. Onset of symptoms was March 27, 2021. 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 - Social history:: Smoking status: Patient/guardian denies using tobacco, Stopped _ months ago 5. - Family history:: not pertinent. Screenin:53 Abuse screen: Denies threats or abuse. Denies injuries from another. Nutritional rr5 screening: No deficits noted. Tuberculosis screening: No symptoms or risk factors identified. Fall Risk None identified. Total Thomas Fall Scale indicates No Risk (0-24 pts). Assessment: 22:52 General: Appears in no apparent distress. uncomfortable, Behavior is calm, cooperative, rr5 appropriate for age. Pain: Complains of pain in chest Pain currently is 8 out of 10 on a pain scale. Quality of pain is described as aching, Pain began gradually, Is intermittent. Neuro: Level of Consciousness is awake, alert, obeys commands, Oriented to person, place, time. Cardiovascular: Reports chest pain, Capillary refill < 3 seconds Patient's skin is warm and dry. Respiratory: Airway is patent Respiratory effort is even, unlabored, Respiratory pattern is regular, symmetrical. GI: No signs and/or symptoms were reported involving the gastrointestinal system. : No signs and/or symptoms were reported regarding the genitourinary system. EENT: No signs and/or symptoms were reported regarding the EENT system. Derm: Skin is intact, is healthy with good turgor, Skin temperature is warm. Musculoskeletal: Capillary refill < 3 seconds. 23:39 Reassessment: Patient appears in no apparent distress at this time. Patient is alert, rr5 oriented x 3, equal unlabored respirations, skin warm/dry/pink. discharge instruction given and explained without complaints made. Vital Signs: 21:45 BP 128 / 70; Pulse 74; Resp 18 S; Temp 98.6(O); Pulse Ox 100% on R/A; Weight 90.72 kg ca1 (R); Height 5 ft. 2 in. (157.48 cm) (R); Pain 6/10; 23:40 BP 108 / 62; Pulse 70; Resp 16; Pulse Ox 98% ; rr5 21:45 Body Mass Index 36.58 (90.72 kg, 157.48 cm) ca1 ED Course: 21:25 Patient arrived in ED. am4 21:47 Triage completed. ca1 21:49 Arm band placed on right wrist. ca1 22:39 Larry Cordova MD is Attending Physician. marino 22:49 Subhash Stiles, REMI is Primary Nurse. rr5 22:53 Patient has correct armband on for positive identification. Placed in gown. Bed in low rr5 position. Call light in reach. plaster caster on. Pulse ox on. NIBP on. 22:53 No provider procedures requiring assistance completed. Patient maintains SpO2 rr5 saturation greater than 95% on room air. 22:57 Chest Single View XRAY In Process Unspecified. EDMS 23:40 Patient did not have IV access during this emergency room visit. rr5 Administered Medications: 23:39 Drug: Aspirin 81 mg Route: PO; ak2 23:41 Follow up: Response: Medication administered at discharge. rr5 23:39 Drug: Motrin (ibuprofen) 600 mg Route: PO; ak2 23:41 Follow up: Response: Medication administered at discharge. rr5 Outcome: 23:24 Discharge ordered by MD. pichardo 23:40 Discharged to home ambulatory. rr5 23:40 Condition: stable 23:40 Discharge instructions given to patient, Instructed on discharge instructions, follow up and referral plans. medication usage, Demonstrated understanding of instructions, follow-up care, medications, Prescriptions given X 1. 23:41 Patient left the ED. rr5 Signatures: Dispatcher [employer] EDMS Larry Cordova MD MD cha Roque, Raymond, RN RN rr5 Helen Arriaga RN RN ca1 Brandy Lockett 4 Bienvenido Cox ak2
[2021-03-27] MEDS ORDERED: IBUPROFEN 200 MG TAB PO ONE (23:51)
[2021-03-27] MEDS ORDERED: ASPIRIN 81 MG CHEWABLE TABLET ONE (23:51)
[2021-03-27] MEDS ORDERED: IBUPROFEN 400 MG TAB ONE (23:51)
[2021-03-28 00:23] VITALS: TEMP 98.6
[2021-03-28 00:24] VITALS: BP 108/62; O2SAT 98
--- NOTE | 2021-03-28 08:37 | RAD REPORT ---
EXAM DESCRIPTION: RAD - Chest Single View - 03/27/2021 10:57 pm CLINICAL HISTORY: CHEST PAIN Chest pain. COMPARISON: No comparisons FINDINGS: Portable technique limits examination quality. The lungs are grossly clear. The heart is normal in size. No displaced fractures. IMPRESSION: No acute intrathoracic process suspected.
== END 2021-03-27 23:41 | disposition home or self-care (01) ==
LOC: ER 21:20
DX: R07.89 Other chest pain (principal); F41.8 Other specified anxiety disorders; E07.9 Disorder of thyroid, unspecified
CPT/HCPCS: 71045; 81003; 81025; 93005; 99285

== ENCOUNTER 2021-08-05 10:32 | Emergency (ER) | payer OTHER ==
[2021-08-05] MEDS ORDERED: KETOROLAC 30 MG/ML INJ ONE (11:31)
[2021-08-05] MEDS ORDERED: DIPHENHYDRAMINE 50 MG/ML VIAL ONE (11:31)
[2021-08-05] MEDS ORDERED: METOCLOPRAMIDE 10 MG/2mL INJ ONE (11:31)
[2021-08-05] MEDS ORDERED: NA CHLORIDE 0.9% 1,000 ML ONE (11:31)
[2021-08-05 13:00] LABS: SARS-COV-2 RT PCR POSITIVE (NEGATIVE)
--- NOTE | 2021-08-05 13:04 | ER ---
Nurse's Notes [facility] Name: Pamela Mckeon Age: 20 yrs Sex: Female : 2000 Arrival Date: 08/05/2021 Time: 10:35 Bed 11 Private MD: Diagnosis: Coronavirus infection, unspecified Presentation: 08/05 10:59 Chief complaint: Patient states: Fever, headache x 3 days. Coronavirus screen: Vaccine aa5 status: Patient reports receiving the 1st dose of the Covid vaccine. fever, headache, Client presents with at least one sign or symptom that may indicate coronavirus-19. Standard/surgical mask placed on the client. Provider contacted for isolation considerations. Ebola Screen: No symptoms or risks identified at this time. Initial Sepsis Screen: Does the patient meet any 2 criteria? No. Patient's initial sepsis screen is negative. Does the patient have a suspected source of infection? No. Patient's initial sepsis screen is negative. Risk Assessment: Do you want to hurt yourself or someone else? Patient reports no desire to harm self or others. Onset of symptoms was August 03, 2021. 10:59 Method Of Arrival: Ambulatory aa5 10:59 Acuity: [place] 4 aa5 Triage Assessment: 11:01 General: Appears in no apparent distress. uncomfortable, Behavior is calm, cooperative, aa5 appropriate for age. Pain: Complains of pain in MAXWELL Pain currently is 10 out of 10 on a pain scale. 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 - Social history:: Smoking status: Patient denies any tobacco usage or history of. Screenin:20 Abuse screen: Denies threats or abuse. Nutritional screening: No deficits noted. ap3 Tuberculosis screening: No symptoms or risk factors identified. Fall Risk None identified. Assessment: 11:20 General: Appears uncomfortable, Behavior is calm, cooperative, appropriate for age. ap3 Pain: Complains of pain in generalized Pain began 2-3 days ago. Neuro: Level of Consciousness is awake, alert, obeys commands, Oriented to person, place, time, situation, Appropriate for age Moves all extremities. Gait is steady, Speech is normal. Respiratory: Airway is patent Respiratory effort is even, unlabored, Respiratory pattern is regular, symmetrical. Vital Signs: 10:59 BP 109 / 68; Pulse 85; Resp 17; Temp 98.2; Pulse Ox 100% ; Weight 94.35 kg; Height 5 aa5 ft. 2 in. (157.48 cm); Pain 10/10; 12:32 Pulse 76; Pulse Ox 100% on R/A; ap3 10:59 Body Mass Index 38.04 (94.35 kg, 157.48 cm) aa5 [place] Coma Score: 13:10 Eye Response: spontaneous(4). Verbal Response: oriented(5). Motor Response: obeys kb commands(6). Total: 15. ED Course: 10:35 Patient arrived in ED. as 10:41 [facility]idra Vernon [facility]C [facility] kb 10:41 Larry Cordova MD is Attending Physician. kb 11:01 Triage completed. aa5 11:01 Arm band placed on right wrist. aa5 11:04 Renée Eugene, REMI is Primary Nurse. ap3 11:20 Inserted saline lock: 20 gauge in right antecubital area, using aseptic technique. ap3 11:21 Patient has correct armband on for positive identification. Call light in reach. Adult ap3 w/ patient. Pulse ox on. NIBP on. Door closed. Noise minimized. Warm blanket given. 13:20 No provider procedures requiring assistance completed. IV discontinued, intact, ap3 bleeding controlled, No redness/swelling at site. Pressure dressing applied. Administered Medications: 11:19 Drug: NS 0.9% 1000 ml Route: IV; Rate: 1000 ml; Site: right antecubital; ap3 13:19 Follow up: IV Status: Completed infusion; IV Intake: 1000ml ap3 11:19 Drug: Reglan (metoCLOPramide) 10 mg Route: IVP; Site: right antecubital; ap3 13:19 Follow up: Response: No adverse reaction ap3 11:19 Drug: Benadryl (diphenhydrAMINE) 12.5 mg Route: IVP; Site: right antecubital; ap3 13:19 Follow up: Response: No adverse reaction ap3 11:19 Drug: Ketorolac 30 mg Route: IVP; Site: right antecubital; ap3 13:19 Follow up: Response: No adverse reaction ap3 Intake: 13:19 IV: 1000ml; Total: 1000ml. ap3 Outcome: 13:04 Discharge ordered by MD. hilton 13:20 Discharged to home ambulatory. ap3 13:20 Condition: good 13:20 Discharge instructions given to patient, Instructed on discharge instructions, follow up and referral plans. Demonstrated understanding of instructions, follow-up care. 13:20 Patient left the ED. ap3 Signatures: Isidra Vernon, CIVIL ESTIMATOR-C CIVIL ESTIMATOR-Latasha Fernandez Audri, RN RN aa5 Renée Eugene RN RN ap3
--- NOTE | 2021-08-05 13:04 | EDPHYS ---
Physician Documentation [facility] Name: Pamela Mckeon Age: 20 yrs Sex: Female : 2000 Arrival Date: 08/05/2021 Time: 10:35 Bed 11 Private MD: GAUTAM Physician Larry Cordova HPI: 08/05 13:09 This 20 yrs old Female presents to ER via Ambulatory with complaints of Fever. kb 13:09 The patient complains of pain to the forehead. The patient describes the headache as kb constant. The patient has not recently seen a physician. 13:09 Onset: The symptoms/episode began/occurred 3 day(s) ago. Associated signs and symptoms: kb Pertinent positives: fever, nausea. Severity of symptoms: At its worst the pain was moderate, in the emergency department the pain is unchanged. Headache History: Denies prior headaches. The symptoms are alleviated by nothing. the symptoms are aggravated by nothing. The patient has not experienced similar symptoms in the past. 13:10 Pt reports fever, headache and nausea for 3 days. 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 - Social history:: Smoking status: Patient denies any tobacco usage or history of. ROS: 13:05 Respiratory: Negative for shortness of breath, cough, wheezing, and pleuritic chest kb pain. 13:05 Constitutional: Positive for fever. 13:05 Abdomen/GI: Positive for nausea. 13:05 Neuro: Positive for headache. 13:05 All other systems are negative. Exam: 13:09 Constitutional: This is a well developed, well nourished patient who is awake, alert, kb and in no acute distress. Head/Face: Normocephalic, atraumatic. ENT: Moist Mucous membranes Cardiovascular: Regular rate and rhythm with a normal S1 and S2. No gallops, murmurs, or rubs. No pulse deficits. Respiratory: Respirations even and unlabored. No increased work of breathing, no retractions or nasal flaring. Skin: Warm, dry with normal turgor. Normal color. MS/ Extremity: Pulses equal, no cyanosis. Neurovascular intact. Full, normal range of motion. Neuro: Awake and alert, GCS 15, oriented to person, place, time, and situation. Moves all extremities. Normal gait. Psych: Awake, alert, with orientation to person, place and time. Behavior, mood, and affect are within normal limits. Vital Signs: 10:59 BP 109 / 68; Pulse 85; Resp 17; Temp 98.2; Pulse Ox 100% ; Weight 94.35 kg; Height 5 aa5 ft. 2 in. (157.48 cm); Pain 10/10; 12:32 Pulse 76; Pulse Ox 100% on R/A; ap3 10:59 Body Mass Index 38.04 (94.35 kg, 157.48 cm) aa5 [place] Coma Score: 13:10 Eye Response: spontaneous(4). Verbal Response: oriented(5). Motor Response: obeys kb commands(6). Total: 15. MDM: 11:03 Patient medically screened. kb 13:05 Data reviewed: vital signs, nurses notes. Data interpreted: Pulse oximetry: on room air kb is 100 %. Interpretation: normal. Counseling: I had a detailed discussion with the patient and/or guardian regarding: the historical points, exam findings, and any diagnostic results supporting the discharge/admit diagnosis, lab results, the need for outpatient follow up, a family practitioner, to return to the emergency department if symptoms worsen or persist or if there are any questions or concerns that arise at home. 08/05 13:00 Order name: COVID-19/FLU A+B; Complete Time: 13:02 EDMS 08/05 11:03 Order name: IV Start; Complete Time: 11:19 kb Administered Medications: 11:19 Drug: NS 0.9% 1000 ml Route: IV; Rate: 1000 ml; Site: right antecubital; ap3 13:19 Follow up: IV Status: Completed infusion; IV Intake: 1000ml ap3 11:19 Drug: Reglan (metoCLOPramide) 10 mg Route: IVP; Site: right antecubital; ap3 13:19 Follow up: Response: No adverse reaction ap3 11:19 Drug: Benadryl (diphenhydrAMINE) 12.5 mg Route: IVP; Site: right antecubital; ap3 13:19 Follow up: Response: No adverse reaction ap3 11:19 Drug: Ketorolac 30 mg Route: IVP; Site: right antecubital; ap3 13:19 Follow up: Response: No adverse reaction ap3 Disposition Summary: 08/05/21 13:04 Discharge Ordered Location: Home kb Condition: Stable kb Diagnosis - Coronavirus infection, unspecified kb Followup: kb - With: Emergency Department - When: As needed - Reason: Worsening of condition Followup: kb - With: Private Physician - When: 2 - 3 days - Reason: Recheck today's complaints, Continuance of care, Re-evaluation by your physician Discharge Instructions: - Discharge Summary Sheet kb - COVID-19 kb - COVID-19 Frequently Asked Questions kb - 10 Things You Can Do to Manage Your COVID-19 Symptoms at Home - [facility] kb Forms: - Medication Reconciliation Form kb - Thank You Letter kb - Antibiotic Education kb - Prescription Opioid Use kb Addendum: 08/07/2021 10:59 Co-signature as Attending Physician, Larry Cordova MD I agree with the assessment and c meraz plan of care. Signatures: Dispatcher [employer] Isidra Baldwin, TRAFFIC CIRCUIT ENGINEER-C TRAFFIC CIRCUIT ENGINEER-Ckb Larry Cordova MD MD cha Calderon, Audri, RN RN aa5 Renée Eugene RN RN ap3 Corrections: (The following items were deleted from the chart) 08/05 11:33 11:03 CORONAVIRUS+MR.LAB.BRZ ordered. EDMS EDMS 11:33 11:03 Influenza Screen (A \T\ B)+BA.LAB.BRZ ordered. EDMS EDMS
[2021-08-05 13:38] VITALS: BP 109/68; TEMP 98.2; O2SAT 100
== END 2021-08-05 13:20 | disposition home or self-care (01) ==
LOC: ER 10:32
DX: U07.1 COVID-19 (principal); F41.8 Other specified anxiety disorders; E07.9 Disorder of thyroid, unspecified
CPT/HCPCS: 96361; 0240U; 96375; 96374; 99283; J2765; J1200; J7030